=== PATIENT | male | born 1990 | race Caucasian/White ===

== ENCOUNTER 2018-04-07 13:52 | Day surgery (SDC) | payer SELFPAY ==
[~2018-04-07] VITALS: Ht 190.5 cm; Wt 174.5 kg
[2018-04-07] VITALS (9 sets, daily range): BP systolic 130–147; BP diastolic 60–101; PULSE 49–92; TEMP 98.1–98.3
[2018-04-07] MEDS ORDERED: NORCO 325 MG-51 TAB PO (14:22)
--- NOTE | 2018-04-07 16:40 | NUR ---
Arrived to medical floor at 1635. VS: 98.1 80 18 139/60 97% RA. Denies having pain and discomort, as well as nausea. Given ice water as requested. Continues on clear liquid diet. Report stated to monitor for 4 hours, and if patient meets discharge criteria, he may go home. Voices no needs at this time.
--- NOTE | 2018-04-07 18:34 | NUR ---
Patient arrived to floor at 1635. VS obtained and monitored every 15 minutes. VS has been stable. Patient denies having pain, discomfort, nausea, vomiting, and upset stomach. Continues on clear liquid diet at this time, and is tolerating well. 15 minute VS D/C'd due to VS remaining stable. Voices no needs at this time. Sitting up in bed watching TV at this time.
--- NOTE | 2018-04-07 18:36 | NUR ---
This RN agrees with MARICEL Tabares notes.patient resting in bed at this time.VSS.tolerating Clear liquids.denies nausea or vomitting.will continue to monitor and will discharge home per doctors orders.no needs voiced at this time.call light in reach
--- NOTE | 2018-04-07 20:51 | NUR ---
PT EDUCATION WAS PROVIDED. IV WAS TAKEN OUT. PAPERWORK SIGNED AND ON CHART. NO C/O PAIN AT THIS TIME. PT RIDE ARRIVED AND PT WAS ESCORTED OUT OF FACILITY
== END 2018-04-07 20:52 | disposition home or self-care (01) ==
LOC: SDCO 13:52
DX: K80.50 Calculus of bile duct without cholangitis or cholecystitis without obstruction (principal); K83.9 Disease of biliary tract, unspecified; R94.5 Abnormal results of liver function studies; Z90.49 Acquired absence of other specified parts of digestive tract; G47.33 Obstructive sleep apnea (adult) (pediatric); E66.9 Obesity, unspecified
CPT/HCPCS: C1769; C2625; J2704; J3010; J7030; Q9967

== ENCOUNTER 2018-05-19 13:16 | Day surgery (SDC) | payer SELFPAY ==
[~2018-05-19] VITALS: Ht 190.5 cm; Wt 172.7 kg
[~2018-05-19 13:16] MED LIST: NORCO 325 MG-51 TAB PO
[2018-05-19 13:38] VITALS: BP 143/85; PULSE 48; TEMP 97.6
[2018-05-19 15:00] VITALS: BP 134/80; PULSE 54; TEMP 97.4
--- NOTE | 2018-05-19 15:00 | NUR ---
Patient returned to [facility]. Alert and oriented, no complaints of pain or nausea. Ambulated to recliner w/o difficulty. Vital signs stable. Requesting juice and muffin, tolerating well. Marlenyts brother is at bedside. Call herrera within reach will continue to monitor.
[2018-05-19 15:15] VITALS: BP 135/81; PULSE 52
[2018-05-19 15:30] VITALS: BP 122/84; PULSE 47
[2018-05-19 15:45] VITALS: BP 137/83; PULSE 49
--- NOTE | 2018-05-19 15:45 | NUR ---
Patient tolerating food and drink well. Vital signs remain stable. Will continue to monitor.
[2018-05-19 16:15] VITALS: BP 129/78; PULSE 48
--- NOTE | 2018-05-19 16:47 | NUR ---
Discharge instructions reviewed with patient and brother. Verbalized understanding. All questions answered. Patient wheeled down to [facility], brother is to drive home.
== END 2018-05-19 16:48 | disposition home or self-care (01) ==
LOC: SDCO 13:16
DX: K83.8 Other specified diseases of biliary tract (principal); K83.9 Disease of biliary tract, unspecified; Z90.49 Acquired absence of other specified parts of digestive tract; G47.33 Obstructive sleep apnea (adult) (pediatric); E66.01 Morbid (severe) obesity due to excess calories; Z68.42 Body mass index [BMI] 45.0-49.9, adult
CPT/HCPCS: C1769; J2250; J2704; J7030